=== PATIENT | female | born 1980 | race Asian ===

== ENCOUNTER → 2021-04-08 10:03 | Outpatient (CLI) | payer OTHER, SELFPAY ==
[2021-04-08 11:05] LABS: COVID19 -Nasal RAPID Negative (Negative)
== END ==
PROVIDERS: PCP Family Medicine; Visit Provider Obstetrics & Gynecology
DX: Z01.812 Encounter for preprocedural laboratory examination (principal); Z20.822 Contact with and (suspected) exposure to COVID-19
CPT/HCPCS: 87635

== ENCOUNTER 2021-04-09 13:09 | Day surgery (SDC) | payer OTHER, SELFPAY ==
[2021-04-03 14:53] VITALS: BMI 23.1
[2021-04-09] VITALS (7 sets, daily range): BP systolic 98–116; BP diastolic 42–75; PULSE 56–64; RESP 14–18; TEMP 36.3–37.1; O2SAT 97–100; BMI 22.4
--- NOTE | 2021-04-09 | PATH_ITS ---
[facility] Accession Number: [id number] . 01 Material submitted: . endometrium - ENDOMETRIAL CURETTINGS . 01 Clinical history: . PELVIC . 02 Diagnosis: Endometrial Curettings: Patchy glandular crowding. Background of dys-synchronous endometrium; negative for glandular hyperplasia, cytologic atypia, or malignancy. Some endometrial fragments demonstrate prominent vessels, suggestive of polyp, if clinical and imaging studies are concordant. MRV 04/12/2021 1030 Local . 02 Electronically signed: . Alda Leary MD, Pathologist NPI- [id number] . 01 Gross description: . ENDOMETRIAL CURETTINGS: Received in formalin are minute fragments of mucoid and hemorrhagic material measuring 3.0 x 3.2 x 0.6 cm in aggregate. Submitted in toto in 1 cassette. /MARISA 04/10/2021 0804 Local . 02 Pathologist provided ICD-10: N92.0, N83.209 . 02 CPT . 226569 Performed at: 01 [facility] [address], [place], [place] [id number] MD Jordon Vazquez MD Phone: [phone] Performed at: 02 [facility] [address] [place], [place] [id number] MD Aleida Michel MD Phone: [phone]
[2021-04-09] MEDS: LACTATED RINGERS 1,000 ML 100 ML IV (13:43)
--- NOTE | 2021-04-09 14:04 | PM.PREOP ---
Pre-operative Note COVID-19 COVID-19 status: Negative Result date/Date tested (Pos, Neg/Pending): 04/08/21 Interval Note History & Physical reviewed/Exam performed by Physician: Yes Changes to H&P: No
[2021-04-09] MEDS: ACETAMINOPHEN 325 MG TABLET 650 MG PO (14:09)
--- NOTE | 2021-04-09 14:50 | SUR.OPER ---
Lithotomy on padded OR bed, head on pillow, arms tucked with gel pads at sides. Legs secured in padded yellow fins stirrups.
[2021-04-09] MEDS: BUPIVACAINE 0.25% W/ EPI 30 ML VIAL INJ (15:06)
--- NOTE | 2021-04-09 15:49 | P.OP_ITS ---
Operative Date/Time/Diagnoses Date of procedure: 04/09/21 Time of procedure: 15:49 Pre-op diagnosis: Menorrhagia and left ovarian cyst on ultrasound suggestive endometrioma Post-op diagnosis: same Procedure & Clinicians Procedure: Laparoscopy with destruction of perineal endometriosis and left endometrioma, hysteroscopy D&C with resection of polyps Same procedure as scheduled: Yes Indications: Patient with menorrhagia and suggestion of polyps on ultrasound with probable endometriomas on the left ovary by ultrasound. Patient also has dysmenorrhea. Surgeon: Maria Luz Mathias Marble Supervisor: Kalin Michael Click Yes if Unassisted: No Anesthesia Type: General Operative Notes Findings: Enlarged uterus. Edematous appearing fallopian tubes. Endometriomas of the left ovary with significant adhesions of the ovary to the posterior uterine wall. Areas of endometriosis on the anterior bladder flap. Likely endometriosis that was cauterized on her right ovary. (Stage III endometriosis.) Normal-appearing appendix. Normal bowel surface. Normal liver edge. No internal hernias. Areas of thickened endometrium with likely polyps removed with scraping and the resecting loop. Closure Type: primary Specimen(s): other (Endometrial curettings) Estimated Blood Loss (mL): 10 Blood products transfused: none Procedure in detail: Patient was brought to the operating room where she underwent general anesthesia. She was placed in low [facility] stirrups and prepped and draped in usual sterile fashion. Pulsatile stockings were in place and functional. Warming was with blankets. A single-tooth tenaculum was placed on the anterior lip of the cervix and the cervix dilated to #6 Hegar dilator. The Ashly uterine manipulator was placed and balloon inflated with 3 mL of air. The area of the incisions were injected with half percent Marcaine with epinephrine. An incision was made in the umbilicus with a scalpel and the Verres needle placed in the abdomen. Confirmation of correct placement of the needle was performed by withdrawing on the syringe and then allowing fluid to fall freely through the needle. The abdomen was insufflated to 3 L of CO2. A 5 mm trocar was placed under direct visualization. 2 other 5 mm trochars were placed in the right and left lower quadrant under direct visualization after incising the skin. There did not appear to be any damage with placement of the trocars. The gyrus cautery was used to cauterize areas of endometriosis on the bladder flap, on the right ovary surface and the posterior uterine wall. With manipulation the left endometrioma areas were ruptured. The endometrium cyst saavedra were cauterized with the PK. Adequate hemostasis was noted. Copious irrigation was undertaken. The CO2 was allowed to escape from the abdomen. The trochars were removed. Skin was closed with 4-0 monocryl. Next the procedure was switched to vaginal. The hysteroscope was placed into the uterus with a sorbitol solution running and under constant suction. The resecting loop set at 80 W of cutting was used to resect the polypoid appearing areas of the endometrium. An endometrial curettage was performed. The endometrial curettage was sent to pathology. The patient went to recovery room in good condition counts of instruments and sponges were correct. The sorbitol solution I=O approximately 3000 mL. The patient went to recovery room in good condition. Complications: none Post-operative Condition: stable Disposition: same day surgery Plan for aftercare: Follow-up in 1 week for further discussion of treatment options
[2021-04-09] MEDS: fentaNYL 100 MCG/2 ML INJ IV (16:08)
[2021-04-09] MEDS: OXYCODONE IR 5 MG TABLET PO (16:11)
[2021-04-09] MEDS: BENZOCAINE/MENTHOL 1 LOZ PKT 1 EACH PO (16:33)
== END 2021-04-09 17:25 | disposition home or self-care (01) ==
PROVIDERS: PCP Family Medicine; Referring Provider Specialist; Visit Provider Specialist
PROC: (CPT 58662; principal; 2021-04-09 14:30)
PROC: 0UDB8ZZ Extraction of Endometrium, Via Natural or Artificial Opening Endoscopic (ICD-10-PCS; CPT 58558; 2021-04-09 14:30)
DX: N92.0 Excessive and frequent menstruation with regular cycle (principal); N94.6 Dysmenorrhea, unspecified; R93.89 Abnormal findings on diagnostic imaging of other specified body structures; K21.9 Gastro-esophageal reflux disease without esophagitis
CPT/HCPCS: 58662; 58558; 81025; J0330; J1100; J1885; J2250; J2405; J2704; J3010

== ENCOUNTER 2023-05-09 10:11 | Emergency (ER) | payer OTHER, SELFPAY ==
[2023-05-09] VITALS (17 sets, daily range): BP systolic 114–138; BP diastolic 60–80; PULSE 54–73; RESP 14; TEMP 36.3; O2SAT 96–100; BMI 21.2
--- NOTE | 2023-05-09 12:15 | DI.CT.S_ITS ---
PROCEDURE: CT ABDOMEN PELVIS W CON INDICATIONS: RLQ pain TECHNIQUE: After the administration of intravenous contrast, axial sections acquired from the lung bases to the pubic symphysis. Coronal and sagittal reformats were performed. For radiation dose reduction, the following was used: automated exposure control, adjustment of mA and/or kV according to patient size. COMPARISON: None. FINDINGS: Lower thorax: The lung bases are clear. Heart size normal. No hiatal hernia. Liver: Normal in size and attenuation. No contour deformity present. Biliary system: No calcified cholelithiasis or pericholecystic inflammation. No intra or extrahepatic bile duct dilatation. Pancreas: Unremarkable without mass or inflammation evident. Spleen: Normal in size and density. Adrenals: Normal morphology and density. Reproductive system: Large uterine fibroid measures 4.2 by 7.6 cm. Bilateral adnexal cystic structures measure up to 3.3 cm Urinary system: Normal renal size and attenuation. No renal calculi, hydronephrosis, or solid mass present. Urinary bladder unremarkable. Gastrointestinal system: The bowel is unremarkable without evidence of bowel obstruction or inflammation. The stomach appears unremarkable. Appendix: No findings to suggest acute appendicitis. Peritoneal spaces: No mesenteric or retroperitoneal adenopathy. No free air. No free fluid. Vasculature: The IVC, aorta and iliac vasculature are unremarkable. Abdominal wall: Abdominal wall intact without evidence of ventral or inguinal hernias. Musculoskeletal: Normal bone mineralization. No acute fractures. IMPRESSION: 1. Although appendix is not discretely visualized, no pericecal inflammatory change present suggest appendicitis. 2. Large uterine fibroid and bilateral adnexal cysts can be correlated with ultrasound Approved by: Fabian Valencia M.D. on 05/09/2023 at 14:12
[2023-05-09 12:54] LABS: Add Manual Diff / Slide Review NO; Basophils Absolute Auto 100 /uL (0-100); Eosinophils Absolute Auto 100 /uL (0-450); Eosinophils Percent Auto 1.6 % (2-4); Hematocrit 34.3 % (36-46); Hemoglobin 10.8 g/dL (12.0-16.0); Lymphocytes Absolute Auto 1300 /uL (1100-4500); Mean Corpuscular HGB Conc 31.4 % (30-36); Mean Corpuscular Hemoglobin 24.2 PG (26-34); Mean Corpuscular Volume 77.2 fL (80-100); Monocytes Absolute Auto 500 /uL (0-900); Monocytes Percent Auto 7.7 % (3-14); Neutrophils Absolute Auto 4100 /uL (1500-7000); Neutrophils Percent Auto 68.7 % (50-75); Platelet Count 417 X10^3/uL (150-400); Red Blood Cell Count 4.44 X10^6/uL (4.0-5.2); Red Cell Distribution Width 15.3 % (11.6-14.8)
[2023-05-09 13:06] LABS: Alanine Aminotransferase 14 IU/L (<35); Albumin 4.6 g/dL (3.5-5.0); Albumin Globulin Ratio 1.4 (1.0-2.8); Alkaline Phosphatase 73 U/L (38-126); Aspartate Aminotransferase 25 IU/L (14-36); BUN Creatinine Ratio 14.8 (6-22); Bilirubin Total 0.3 mg/dL (0.2-1.3); Blood Urea Nitrogen 9 mg/dL (7-17); Calcium 8.9 mg/dL (8.4-10.2); Carbon Dioxide 25 mmol/L (22-32); Chloride 105 mmol/L (98-107); Estimated Glomerular Filt Rate > 60 mL/min (>60); Globulin 3.3 g/dL (1.7-4.1); Glucose 92 mg/dL (70-100); HEMOLYSIS 21 (0-50); Lipase 136 U/L (23-300); Potassium 3.6 mmol/L (3.4-5.1); Sodium 138 mmol/L (137-145); Total Protein 7.9 g/dL (6.3-8.2)
[2023-05-09] MEDS: KETOROLAC 30 MG/ML VIAL 15 MG IV (13:49)
--- NOTE | 2023-05-09 15:33 | ED_ITS ---
HPI - Abdominal Pain General Chief Complaint: Abdominal Pain Stated Complaint: Rt Lower Abd Pain Time Seen by Provider: 05/09/23 14:06 Source: patient Mode of arrival: Ambulatory History of Present Illness HPI narrative: Patient is a 42-year-old female who presents today with abdominal pain. She is being followed by youth liaison officer for menorrhagia due to adenomyosis and being treated with tranexamic acid. She had a CT at the [facility] on February 04. She reports at vaginal bleeding has decreased significantly. No dizziness no lightheadednes s no shortness of breath. Today she reports with abdominal pain. She denies any vaginal bleeding no fever chills no nausea or vomiting. Related Data Home Medications Medication Instructions Recorded Confirmed naproxen 500 mg tablet 500 mg PO BID PRN Pain (Scale 03/21/21 05/09/23 Score 7-10) ferrous sulfate 325 mg (65 mg 325 mg PO DAILY 05/09/23 05/09/23 iron) tablet (FeroSul) tranexamic acid 650 mg tablet 1,300 mg PO TID PRN heavy period 05/09/23 05/09/23 Previous Rx's Medication Instructions Recorded hydrocodone 5 mg-acetaminophen 325 1 tab PO Q6H PRN pain #10 tabs 05/09/23 mg tablet Allergies Allergy/AdvReac Type Severity Reaction Status Date / Time amoxicillin Allergy Unknown hives Verified 05/09/23 10:34 Review of Systems Review of Systems ROS Unobtainable: All systems reviewed & are unremarkable except as noted in HPI and below Patient History Medical History (Updated 05/09/23 @ 17:59 by Loretta Freeman DO) Anemia (~1992) Chicken pox (~1984) Wears glasses Social History household members: spouse and children Smoking Status: Never smoker alcohol intake: never Smoking Status: Never smoker alcohol intake frequency: 0-2 drinks per day Substance Use Type: does not use Exam Initial Vital Signs Initial Vital Signs: Vital Signs Temperature 97.4 F L 05/09/23 10:27 Pulse Rate 60 05/09/23 10:27 Respiratory Rate 14 05/09/23 10:27 Blood Pressure 138/70 05/09/23 10:27 Pulse Oximetry 99 05/09/23 10:27 Oxygen Delivery Method Room Air 05/09/23 10:27 GENERAL: Alert well-appearing 42-year-old female and in no acute distress. HEENT: Head atraumatic,EOMI, pupils reactive, face symmetric, moist mucous membranes CARDIOVASCULAR: Regular rate and rhythm without murmurs, rubs or gallops. RESPIRATORY: Breath sounds equal bilaterally, no wheezes rales or rhonchi. ABDOMEN: Soft, mild tender right lower quadrant no guarding no rebound : No CVA tenderness EXTREMITIES: Normal range of motion, no clubbing or edema. Neurovascularly i ntact NEUROLOGICAL: Alert and oriented x4. SKIN: Warm, dry, no laceration, no petechiae, no rashes or lesions. Course Orders Ordered: ED Orders 05/09/23 12:15 CT abdomen pelvis w con Stat 05/09/23 12:43 Complete Blood Count AUTO DIFF Stat Comprehensive Metabolic Panel Stat Lipase Stat 05/09/23 15:52 US pelvic complete Stat Discontinued Medications Ketorolac Tromethamine (Ketorolac 30 Mg/Ml Vial) 15 mg IV NOW ONE Stop: 05/09/23 12:48 Last Admin: 05/09/23 13:49 Dose: 15 mg Documented By: PAZ Ondansetron HCl (Ondansetron 4 Mg Odt) 4 mg PO NOW PRN PRN Reason: Nausea And Vomiting Ondansetron HCl (Ondansetron 4 Mg/2 Ml Inj) 4 mg IV NOW PRN PRN Reason: Nausea And Vomiting Vital Signs Vital signs: Vital Signs - 8 hr 05/09/23 13:46 05/09/23 13:46 05/09/23 14:00 Pulse Rate 60 Blood Pressure 136/80 120/74 Pulse Oximetry 100 05/09/23 14:00 05/09/23 14:21 05/09/23 14:21 Pulse Rate 67 61 Blood Pressure 122/68 Pulse Oximetry 100 100 05/09/23 14:30 05/09/23 14:40 05/09/23 14:40 Pulse Rate 73 66 Blood Pressure 124/69 Pulse Oximetry 100 96 05/09/23 15:00 05/09/23 15:00 05/09/23 15:20 Pulse Rate 65 Blood Pressure 117/73 119/68 Pulse Oximetry 100 05/09/23 15:20 05/09/23 15:30 05/09/23 15:41 Pulse Rate 54 L 56 L Blood Pressure 125/60 Pulse Oximetry 100 100 05/09/23 15:41 05/09/23 16:00 05/09/23 16:00 Pulse Rate 66 68 Blood Pressure 119/72 Pulse Oximetry 100 100 05/09/23 16:20 05/09/23 16:20 05/09/23 17:02 Pulse Rate 64 Blood Pressure 118/69 114/66 Pulse Oximetry 100 05/09/23 17:02 05/09/23 17:20 05/09/23 17:20 Pulse Rate 65 62 Blood Pressure 119/75 Pulse Oximetry 100 100 05/09/23 17:30 05/09/23 17:40 05/09/23 17:40 Pulse Rate 60 65 Blood Pressure 131/74 Pulse Oximetry 100 100 05/09/23 18:00 05/09/23 18:00 Pulse Rate 66 Blood Pressure 131/60 Pulse Oximetry 100 MDM - Abdominal Pain Lab Data 05/09/23 12:43 05/09/23 12:43 Labs: Lab Results 05/09/23 05/09/23 Range/Units 12:43 12:43 WBC 6.0 (4.5-11.0) X10^3/uL RBC 4.44 (4.0-5.2) X10^6/uL Hgb 10.8 L (12.0-16.0) g/dL Hct 34.3 L (36-46) % MCV 77.2 L (80-100) fL MCH 24.2 L (26-34) PG MCHC 31.4 (30-36) % RDW 15.3 H (11.6-14.8) % Plt Count 417 H (150-400) X10^3/uL Neut % (Auto) 68.7 (50-75) % Lymph % (Auto) 21.0 L (25-40) % [place] % (Auto) 7.7 (3-14) % Eos % (Auto) 1.6 L (2-4) % Baso % (Auto) 1.0 (0-2) % Neut # (Auto) 4100 (1869-5227) /uL Lymph # (Auto) 1300 (7315-8982) /uL [place] # (Auto) 500 (0-900) /uL Eos # (Auto) 100 (0-450) /uL Baso # (Auto) 100 (0-100) /uL Sodium 138 (137-145) mmol/L Potassium 3.6 (3.4-5.1) mmol/L Chloride 105 (98-107) mmol/L Carbon Dioxide 25 (22-32) mmol/L BUN 9 (7-17) mg/dL Creatinine 0.61 (0.52-1.04) mg/dL Estimated GFR > 60 (>60) mL/min BUN/Creatinine Ratio 14.8 (6-22) Glucose 92 (70-100) mg/dL Calcium 8.9 (8.4-10.2) mg/dL Total Bilirubin 0.3 (0.2-1.3) mg/dL AST 25 (14-36) IU/L ALT 14 (<35) IU/L Alkaline Phosphatase 73 (38-126) U/L Total Protein 7.9 (6.3-8.2) g/dL Albumin 4.6 (3.5-5.0) g/dL Globulin 3.3 (1.7-4.1) g/dL Albumin/Globulin Ratio 1.4 (1.0-2.8) Lipase 136 (23-300) U/L Point of care testing: Point of Care Testing Test Results Negative Urine Dip Bedside Urine Glucose Negative Bedside Urine Bilirubin - Negative Bedside Urine Ketone - Negative Urine Specific [place] 1.020 Bedside Urine Occult Blood - Negative Bedside Urine pH 6.0 Bedside Urine Protein - Negative Bedside Urine Urobilinogen - Negative Bedside Urine Nitrite - Negative Bedside Urine Leukocytes - Negative Esterase Imaging Data CT scan - abdomen/pelvis: Radiologist's Impression: PROCEDURE:? CT ABDOMEN PELVIS W CON ? INDICATIONS:? RLQ pain ? TECHNIQUE:? After the administration of intravenous contrast, axial sections acquired from the lung bases to the pubic symphysis.? Coronal and sagittal reformats were performed.? For radiation dose reduction, the following was used:? automated exposure control, adjustment of mA and/or kV according to patient size.? ? COMPARISON:? None. ? FINDINGS: ? Lower thorax: The lung bases are clear.? Heart size normal.? No hiatal hernia. ? Liver:? Normal in size and attenuation. No contour deformity present. ? Biliary system:? No calcified cholelithiasis or pericholecystic inflammation.? No intra or extrahepatic bile duct dilatation. ? Pancreas:? Unremarkable without mass or inflammation evident. ? Spleen:? Normal in size and density. ? Adrenals:? Normal morphology and density. ? Reproductive system:? Large uterine fibroid measures 4.2 by 7.6 cm.? Bilateral adnexal cystic structures measure up to 3.3 cm ? Urinary system:? Normal renal size and attenuation. No renal calculi, hydronephrosis, or solid mass present.? Urinary bladder unremarkable. ? Gastrointestinal system:? The bowel is unremarkable without evidence of bowel obstruction or inflammation. The stomach appears unremarkable. ? Appendix:? No findings to suggest acute appendicitis. ? Peritoneal spaces:? No mesenteric or retroperitoneal adenopathy.? No free air.? No free fluid.? ? Vasculature:? The IVC, aorta and iliac vasculature are unremarkable. ? Abdominal wall:? Abdominal wall intact without evidence of ventral or inguinal hernias. ? Musculoskeletal:? Normal bone mineralization.? No acute fractures.? ? IMPRESSION: ? 1. Although appendix is not discretely visualized, no pericecal inflammatory change present suggest appendicitis. ? 2. Large uterine fibroid and bilateral adnexal cysts can be correlated with ultrasound ? ? Approved by: Fabian Valencia M.D. on 05/09/2023 at 14:12? US - COMMERCIAL LOAN ANALYST: Radiologist's Impression: PROCEDURE:? US PELVIC COMPLETE ? INDICATIONS:? PAIN; OVARIAN CYSTS ON CT ? TECHNIQUE:? Real-time scanning was performed of the pelvic organs, with image documentation.? Additional endovaginal scanning was necessary due to incomplete visualization of the adnexal and endometrial structures by transabdominal scanning.? ? COMPARISON:? None. ? FINDINGS:? ?? Uterus:? Uterus is anteverted and normal in size at 10.4 x 5.9 x 8.1 cm. The myometrium is heterogenous. ? The endometrium measures 10.6 mm combined thickness.? Midline anterior fibroid submucosal measures 6.5 x 4.1 x 6.4 cm ? Ovaries:? The right ovary measures 3.8 x 4.4 x 3.3 cm, with a calculated ovarian volume of 29.0 cc. The left ovary measures 3.3 x 3.7 x 2.8 cm, with a calculated ovarian volume of 17.9 cc. The ovaries have a normal sonographic appearance.? Right ovarian simple cyst measures 3.5 x 2.8 cm.? Left ovarian hemorrhagic cyst measures 3.0 x 3.2 cm. Bilateral normal appearing ovarian vascularity documented. ? Other:? No pathologic free abdominal or pelvic fluid. ? ? IMPRESSION:? ? 1. Large submucosal uterine fibroid, 6.5 cm. ? 2. Left ovarian 3.2 cm hemorrhagic cyst and right ovarian 3.5 cm simple cyst.? No evidence torsion ? ? Approved by: Fabian Valencia M.D. on 05/09/2023 at 16:34? [facility] Narrative Medical decision making narrative: Patient 42 year male who presenting today with abdominal pain. History of thyroid on vaginal bleeding. She reports vaginal bleeding has improved significantly she is anemic with a hemoglobin of 10 and hematocrit 34.3. She is hemodynamically stable. CT today does not show any evidence of appendicitis and appears relatively stable. Ultrasound does not show any evidence of ovarian torsion. Pain is well-controlled and completely resolved now in the ED. Discharge Plan Departure Patient Disposition: Home Clinical Impression: Fibroid, uterine Instructions: DI for Uterine Fibroids Activity Restrictions/Additional Instructions: *You have been diagnosed with uterine fibroids *What to do: At this time everything appears stable. Please continue to follow-up with Dr. Michael. *Continue to take medications as directed [place] 1 tablet every 6 hours if needed for severe pain-->[facility] *Follow up with your primary care provider in 2-3 days or call [phone] Michael on Thursday to schedule follow-up appointment *Return to ER if you should have increasing pain, vaginal bleeding more than 2 pads in 1 hour, dizziness lightheadedness or any new, worsening or concerning symptoms Prescriptions: New hydrocodone-acetaminophen 5-325 mg tablet 1 tab PO Q6H PRN (Reason: pain) Qty: 10 0RF No Action naproxen 500 mg tablet 500 mg PO BID PRN (Reason: Pain (Scale Score 7-10)) ferrous sulfate [FeroSul] 325 mg (65 mg iron) tablet 325 mg PO DAILY tranexamic acid 650 mg tablet 1,300 mg PO TID PRN (Reason: heavy period) Rx Instructions: Start medication with the start of each period Referrals: Chirag Azevedo MD [Primary Care Provider] - Stand Alone Forms: Patient Portal/API
--- NOTE | 2023-05-09 15:52 | DI.US.S_ITS ---
PROCEDURE: US PELVIC COMPLETE INDICATIONS: PAIN; OVARIAN CYSTS ON CT TECHNIQUE: Real-time scanning was performed of the pelvic organs, with image documentation. Additional endovaginal scanning was necessary due to incomplete visualization of the adnexal and endometrial structures by transabdominal scanning. COMPARISON: None. FINDINGS: Uterus: Uterus is anteverted and normal in size at 10.4 x 5.9 x 8.1 cm. The myometrium is heterogenous. The endometrium measures 10.6 mm combined thickness. Midline anterior fibroid submucosal measures 6.5 x 4.1 x 6.4 cm Ovaries: The right ovary measures 3.8 x 4.4 x 3.3 cm, with a calculated ovarian volume of 29.0 cc. The left ovary measures 3.3 x 3.7 x 2.8 cm, with a calculated ovarian volume of 17.9 cc. The ovaries have a normal sonographic appearance. Right ovarian simple cyst measures 3.5 x 2.8 cm. Left ovarian hemorrhagic cyst measures 3.0 x 3.2 cm. Bilateral normal appearing ovarian vascularity documented. Other: No pathologic free abdominal or pelvic fluid. IMPRESSION: 1. Large submucosal uterine fibroid, 6.5 cm. 2. Left ovarian 3.2 cm hemorrhagic cyst and right ovarian 3.5 cm simple cyst. No evidence torsion Approved by: Fabian Valencia M.D. on 05/09/2023 at 16:34
== END 2023-05-09 18:18 | disposition home or self-care (01) ==
PROVIDERS: Emergency Medicine; Emergency Provider Emergency Medicine; PCP Internal Medicine
DX: D25.0 Submucous leiomyoma of uterus (principal)
CPT/HCPCS: 36415; 74177; 76856; 80053; 81003; 81025; 83690; 85025; 93975; 96374; 99284; J1885; Q9967

== ENCOUNTER 2023-12-31 08:20 | Day surgery (SDC) | payer OTHER, SELFPAY ==
[2023-12-17 15:08] VITALS: BMI 21.8
[2023-12-31] VITALS (13 sets, daily range): BP systolic 97–136; BP diastolic 52–74; PULSE 80–94; RESP 12–18; TEMP 36.1–37; O2SAT 96–100; BMI 21.8; BMI 22.8
--- NOTE | 2023-12-31 | PATH_ITS ---
[facility] Accession Number: [id number] No. of containers..02 Tissue . 01 Material submitted: . PART A: uterus - UTERUS, BILATERAL FALLOPIAN TUBES, R OVARY PART B: ovary - ENDOMETRIUM, LEFT OVARY . 01 Diagnosis: A. UTERUS, BILATERAL FALLOPIAN TUBES, RIGHT OVARY, TOTAL LAPAROSCOPIC HYSTERECTOMY WITH BILATERAL SALPINGECTOMY AND RIGHT OOPHORECTOMY (WEIGHT 235 GRAMS, FRAGMENTED UTERUS): Proliferative endometrium; negative for glandular hyperplasia, cytologic atypia, or malignancy. Myometrium with patchy involvement by adenomyosis and with one benign leiomyoma (10 mm in greatest dimension). Left fallopian tube, complete cross-sections, with involvement by endometriosis; negative for epithelial atypia or malignancy. Right fallopian tube, complete cross-sections, with involvement by endometriosis; negative for epithelial atypia or malignancy. Right ovary with a hemorrhagic corpus luteum, with benign follicular cysts, and with involvement by endometriosis. . B. ENDOMETRIOMA LEFT OVARY: Portions of fibroconnective tissue with abundant hemosiderin laden macrophages; findings could be consistent with fragments of endometrioma, in the appropriate setting. No well-preserved ovarian tissue identified. [facility] 01/07/2024 1036 Local . 01 Comment: Part B. Dr. Leary called Dr. Michael's care team (Dr. Alec Gómez's nurse) on 01-07-24 at approximately 10:26 regarding the absence of definite ovarian tissue in part B (submitted as endometrioma left ovary). . 01 Electronically signed: . Alda Leary MD, Pathologist NPI- [id number] . 01 Gross description: . A. Received in formalin with two identifiers and uterus, bilateral fallopian tubes, R ovary, is a fragmented uterus (235 grams, 15.2 x 14.5 x 5.2 cm), presumed right fallopian tube (5.2 x 0.9 cm), presumed ragged right ovary (15 grams, 4.5 x 2.9 x 2.2 cm), and presumed left fallopian tube (3.7 x 0.6 cm), with no additional adnexa. The serosa is rodriguez and wrinkled with no evidence of adhesion identified. The presumed endometrium is velvety and averages 0.1 cm thick, with no lesions identified. The myometrium is rodriguez and trabecular with a well-circumscribed, white, whorled nodule measuring 1.0 cm in greatest dimension, and no hemorrhage or necrosis identified. No additional lesions are identified. . The left tube has rodriguez smooth serosa with a cystic structure measuring 0.4 cm in greatest dimension filled with clear serous fluid. Sectioning reveals an unremarkable stellate lumen. . The right fallopian tube has rodriguez, smooth serosa with no cysts identified, and sectioning reveals an unremarkable stellate lumen. The presumed ovary right ovary is diffusely ragged, is inked blue, and sectioning reveals ovarian parenchyma with multiple cystic structures measuring up to 0.9 cm in greatest dimension with contents ranging from hemorrhagic to serous. The ragged areas appear to be attached soft tissue with cautery artifact. . [employer] Judge sections are submitted as follows: A1: Endometrium A2: Serosa. A3: Nodule. A4: Left fallopian tube to include one-half of bisected fimbriae and cross sections. A5: Right fallopian tube to include one-half of bisected fimbriae and cross sections. A6: Right ovary. B. Received in formalin with two identifiers and endometrioma left ovary, is an irregular, brown, soft tissue fragment measuring 1.1 x 0.9 x 0.4 cm. One aspect consistent with margin is inked blue while the opposite aspect is inked yellow, and the specimen is serially sectioned and submitted entirely in B1. ([id number]) /MRV 01/07/2024 1036 Local . 01 Pathologist provided ICD-10: N80.9 . 01 CPT . 607430, [id number] Performed at: 01 [facility] [address] [place] [address] [address] [facility] [place], [place], [place] [id number] MD Jordon Vazquez MD Phone: [phone]
[2023-12-31] MEDS: LACTATED RINGERS 1,000 ML 42 ML IV ×2 (09:13→11:09)
--- NOTE | 2023-12-31 09:15 | PM.PREOP ---
Pre-operative Note COVID-19 COVID-19 status: Not tested Interval Note History & Physical reviewed/Exam performed by Physician: Yes Changes to H&P: No
[2023-12-31] MEDS: SCOPOLAMINE 1 PATCH TOP (09:16)
[2023-12-31] MEDS: ACETAMINOPHEN 325 MG TABLET 975 MG PO (09:17)
[2023-12-31] MEDS: CEFAZOLIN 2 GM/100 ML PREMIX 100 ML IV (09:39)
--- NOTE | 2023-12-31 10:06 | SUR.OPER ---
Lithotomy on padded OR bed. [place] Pad Positioner under torso. Head on pillow, arms padded and tucked at sides. Legs secured in padded yellow fins stirrups.
[2023-12-31] MEDS: BUPIVACAINE 0.5% (PF) 30 ML, EPINEPHrine 0.15 MG INJ (10:18)
--- NOTE | 2023-12-31 12:34 | PM.GYNOP.1 ---
Operative Date/Time/Diagnoses Date of procedure: 12/31/23 Time of procedure: 09:45 Pre-op diagnosis: Menometrorrhagia Adenomyosis Post-op diagnosis: other (Same as above; stage III pelvic endometriosis) Procedure & Clinicians Procedure: Procedures Operation Date: 12/31/23 09:45 Actual Procedure Side Surgeon p Laparoscopic Total Hysterectomy with bilateral salpingectomy Kalin Michael MD Indications: Yris is a 42 yo A2, LMP 11/05/2023 who presents today to discuss options for lessening her menstrual flow which has resulted in anemia for which she is taking ferrous sulfate daily. In March 2021, the patient underwent laparoscopy, hysteroscopy, and D&C with resection of an endometrial polyp and removal of an ovarian endometrioma. Following her surgery however the patient has not had a significant change in her menstrual flow which although only lasting 3 days, the 1st days extremely heavy resulting in overflows and accidents. She denies intermenstrual bleeding however. Her last Pap was 4 years ago and was normal as have been all of her other Paps previously. Patient would like to get again in therefore use of contraception in the treatment of her menorrhagia at this point isn't an option she wants to consider. Her most recent pelvic ultrasound performed at [facility] on 08/21/2022 showed the uterus to be anteverted measuring about 12 cm in length, 8 cm in width, and 6.5 cm in AP dimension. The uterine contour is somewhat globular in the anterior myometrium is asymmetrically thickened and heterogenous with scattered linear striations and thin shadows and possibly a few scattered tiny cysts. Also some portions of the endometrial/myometrial interface are obscured. In retrospect it is believe these findings were present on prior ultrasound from February 2021 but appear somewhat more obvious on the current scan and are consistent with adenomyosis. Endometrial canal echo were seen is homogeneous LEEP echogenic and of normal thickness for a patient who is still menstruating. Estimated maximal double wall thickness is about 9 mm in the midline. The right ovary is unremarkable but the left ovary is slightly enlarged measuring 5.1 x 4.4 x 1.8 cm with a cubic volume of approximately 21 cc. There is a 2.6 x 2.3 x 1.7 cm cyst with some minimal low-level internal echoes of the lower aspect of the left ovary. To previously noted homogeneous Olga hypoechoic probable endometriomas of the left ovary measuring about 3.5 and 1.6 cm average diameter respectively noted on study from February 2021 are not identified on this study. There is no adnexal masses noted and there is no focal pelvic fluid collection. After consideration of all options, the patient wishes to proceed with total laparoscopic hysterectomy and bilateral salpingectomy. She presents today for her scheduled surgery. Surgeon: Kalin Michael Line Patroller: Maria Luz Mathias Anesthesia Type: General Operative Notes Findings: The uterus is globular and diffusely enlarged to approximately 8-10 weeks size. There are 2 superficial endometrial implants in the anterior cul-de-sac. There is extensive scarring involving both adnexa with both ovaries adherent to the lateral aspect of the uterus, right side more so than the left. Fallopian tubes are also distorted by adnexal scarring. Endometriomas are present in both ovaries. Posterior cul-de-sac is involved with adhesions involving the posterior cervix to the distal sigmoid and proximal rectum rectum. The remainder of the abdomen appeared normal to laparoscopic inspection. Closure Type: primary Specimen(s): left tube, right tube & ovary, uterus and other (Endometrioma capsule, left ovary) Applied: catheter Estimated blood loss (mL): 200 Blood products transfused: none Procedure in detail: With the patient under satisfactory general anesthesia in the modified dorsal lithotomy position, perineum, vagina, abdomen were prepped and draped in the usual manner for total laparoscopic hysterectomy. Pre-surgical safety time-out was then taken in accordance with [facility] [place] protocols. A Mcgill catheter was inserted in the bladder. A bivalve speculum was inserted in the vagina and the anterior lip of the cervix grasped with a single-tooth tenaculum. A 1. PDS stitch was placed through the anterior lip of the cervix and threaded through the VCare uterine manipulator after is inserted following cervical dilation with the Hegar dilators. The umbilicus was infiltrated with 0.5% Marcaine with epinephrine a 1 cm vertical incision was made in the skin of the inferior edge of the umbilicus. A Veress needle was then used to insufflate the abdomen with carbon dioxide and once sufficiently insufflated, a 5 mm trocar and sleeve replaced into the abdominal cavity. Correct placement of trocar was confirmed by direct visualization abdominal viscera with the scope. A 2nd and 3rd 5 mm port placed in the left and right mid quadrants utilizing a similar technique. Using a 3 puncture technique, the patient's pelvis and abdomen were carefully inspected with the findings as noted above. The uterus was mobilized but mobility was limited due to adhesions. The left fallopian tube was grasped with an atraumatic grasper and using the power Seal device, it was from the ovary on the left and sequential pedicles taken so as to be able remove the left fallopian tube. Sharp and blunt dissection was then used to dissect free the adhesions involving the rectosigmoid from the posterior aspect of the uterus. Once the rectosigmoid was sufficiently mobilized, the dissection was carried down the lateral aspect of the uterus on the left staying as close as possible to the body of the uterus. Once the vesico cervical reflection was identified, bladder flap was initiated from the left side and vessels skeletonized. The adhesions to the posterior aspect of the cervix were so dense that it was felt prudent to change the surgical plan from TLH to laparoscopic supracervical hysterectomy. Accordingly the vessels on the lateral aspect of the cervix were coagulated divided power Seal and the level of the endocervical canal was skeletonized with careful attention to hemostasis. Attention was then turned to right side and attempts to separate the ovary from the posterior aspect of the uterus were unsuccessful due to the extent and density of the adhesions involved. An endometrioma within the ovary on the right was suctioned irrigated. The infundibulopelvic ligament was skeletonized on the right side, coagulated and divided with a power Seal device. Dissection on the right side was then carried out with a power Seal device as well as both sharp and blunt dissection so as to open the space on the superolateral aspect the sidewall careful avoidance of the ureter on that side as well as all in vessels. The dissection was carried down slowly to the level of the endocervical canal at which point the bladder flap was completed and the vessels taken with a power Seal device on the right side. Uterus blanched as expected and using a Hailee loop, the uterine corpus was amputated from the cervix the cervix was rendered hemostatic with monopolar cautery and the endocervical canal itself was then coagulated with the monopolar cautery as well. A 4 cm transverse incision in the line of her previous Pfannenstiel was made and a 12 mm laparoscopic trocar placed through the incision into the abdominal cavity. Using a specimen retrieval bag, the uterus was captured and brought up through the incision after placement an Marco retractor. The uterus was then morcellated and the aggregate specimen was submitted for pathologic evaluation. Fascia was then closed with 0 Vicryl in running stitch. The abdomen was then reinsufflated and the pelvis carefully inspected for any points of bleeding. Two small areas venous bleeding were noted and easily brought under control. Pelvis was irrigated thoroughly and carefully inspected for any additional areas of bleeding under low pressure and none were seen. Ureters were both visualized at pelvic brim and seen to be actively peristalsing on both sides. Once complete pelvic hemostasis was assured, a pneumoperitoneum was vented and the trocars removed. The incisions were all closed with 4-0 Monocryl in inverted interrupted stitches and appropriate dressings were applied. Patient was then awakened from anesthesia and transferred to the PACU for a period of observation and recovery having tolerated the procedure well. Complications: none Post-operative Condition: stable Disposition: PACU Plan for aftercare: Routine postop care with follow-up plans for 2 weeks postop.
[2023-12-31] MEDS: LACTATED RINGERS 1,000 ML 100 ML IV ×2 (13:23→18:35)
[2023-12-31] MEDS: OXYCODONE IR 5 MG TABLET PO (14:31)
[2023-12-31] MEDS: ONDANSETRON 4 MG/2 ML INJ IV (18:34)
[2023-12-31] MEDS: IBUPROFEN 600 MG TABLET PO (18:34)
[2023-12-31] MEDS: ACETAMINOPHEN 325 MG TABLET 650 MG PO (18:34)
[2023-12-31] MEDS: DOCUSATE 100 MG CAPSULE 200 MG PO (21:53)
[2024-01-01] VITALS (10 sets, daily range): BP systolic 101–140; BP diastolic 33–74; PULSE 63–81; RESP 16; TEMP 36.5–36.9; O2SAT 98–100
[2024-01-01] MEDS: LACTATED RINGERS 1,000 ML 100 ML IV ×2 (04:59→22:38)
[2024-01-01] MEDS: ACETAMINOPHEN 325 MG TABLET 650 MG PO ×4 (05:46→18:35)
[2024-01-01] MEDS: KETOROLAC 30 MG/ML VIAL IV ×2 (06:41)
[2024-01-01 06:59] LABS: Add Manual Diff / Slide Review NO; Basophils Absolute Auto 0 /uL (0-100); Basophils Percent Auto 0.4 % (0-2); Eosinophils Absolute Auto 0 /uL (0-450); Lymphocytes Absolute Auto 1000 /uL (1100-4500); Lymphocytes Percent Auto 12.9 % (25-40); Mean Corpuscular HGB Conc 27.5 % (30-36); Mean Corpuscular Hemoglobin 15.4 PG (26-34); Mean Corpuscular Volume 55.8 fL (80-100); Monocytes Absolute Auto 700 /uL (0-900); Monocytes Percent Auto 8.8 % (3-14); Neutrophils Absolute Auto 6000 /uL (1500-7000); Neutrophils Percent Auto 77.9 % (50-75); Platelet Count 341 X10^3/uL (150-400); Red Blood Cell Count 2.95 X10^6/uL (4.0-5.2); Red Cell Distribution Width 20.1 % (11.6-14.8); White Blood Cell Count 7.7 X10^3/uL (4.5-11.0)
[2024-01-01 07:02] LABS: Hemoglobin 4.5 g/dL (12.0-16.0)
[2024-01-01 07:03] LABS: Hematocrit 16.5 % (36-46)
[2024-01-01 07:32] LABS: Anisocytosis 2+; Microcytosis 2+
[2024-01-01 07:33] LABS: Ovalocytes 1+; Schistocytes 1+
[2024-01-01 07:35] LABS: Hypochromasia 2+
--- NOTE | 2024-01-01 07:52 | PC.NURSE ---
Critical H & H 4.5/ 16.5. Notified Dr. Michael and received order for 1000mg IV TXA, repeat H&H at 10:00, abdominal binder, d/c toredal. Patient asymptomatic and no bleeding noted. Endorsed to oncoming nurse.
[2024-01-01] MEDS: TRANEXAMIC ACID 1,000 MG in SODIUM CHLORIDE 0.9% 100 ML 200 MG IV (08:07)
--- NOTE | 2024-01-01 08:11 | P.PN_ITS ---
Subjective Subjective Date Patient Seen: 01/01/24 Time Patient Seen: 08:11 Interval history: Patient has done extremely well overnight with no nausea and vomiting, no vaginal bleeding, and her mckeon has been removed but she hasn't been up much yet. Exam Vital Signs (past 8 hours): - 01/01/24 05:58 Temperature 98.1 F Pulse Rate 69 Respiratory Rate 16 Blood Pressure 104/58 L Pulse Oximetry 99 Oxygen Flow Rate 0 Oxygen Delivery Method Room Air Oxygen Flow Rate 0 Const General: cooperative and comfortable Nutritional Appearance: average body habitus Orientation: alert and oriented x3 HENMT Head: normal to inspection, atraumatic and abrasion Ears: hearing grossly normal bilaterally Face and sinus: face symmetric Eyes General: appearance normal, both eyes and all related structures Conjunctivae: conjunctivae normal Sclera: sclerae normal EOM: EOM intact bilaterally Neck Neck: normal visual inspection Resp Effort & Inspection: normal respiratory effort and able to speak in complete sentences Auscultation: clear to auscultation bilaterally Cardio Rate: regular rate Rhythm: regular rhythm Heart Sounds: S1 normal, S2 normal and no murmurs GI Inspection: normal to inspection, non-distended and incision (Surgical dressings clean and dry) Palpation: soft, no hepatosplenomegaly and tender (Mild, diffuse postsurgical tenderness) Auscultation: hypoactive bowel sounds External Female Exam: other (No significant bleeding noted) Extrem General: no calf tenderness Psych Appearance: grossly normal Mental Status: mental status grossly normal Speech and Movement: speech and movement normal Mood: congruent mood Affect: normal affect Attitude: cooperative Thought Process: normal Thought Content: normal Judgment: judgment good Objective Labs 01/01/24 10:00 Labs: Laboratory Results - last 24 hr 01/01/24 06:00 WBC 7.7 RBC 2.95 L Hgb 4.5 L* Hct 16.5 L* MCV 55.8 L MCH 15.4 L MCHC 27.5 L RDW 20.1 H Plt Count 341 Neut % (Auto) 77.9 H Lymph % (Auto) 12.9 L [place] % (Auto) 8.8 Eos % (Auto) 0.0 L Baso % (Auto) 0.4 Neut # (Auto) 6000 Lymph # (Auto) 1000 L [place] # (Auto) 700 Eos # (Auto) 0 Baso # (Auto) 0 RBC Morphology See below Hypochromasia 2+ H Anisocytosis 2+ H Microcytosis 2+ H Ovalocytes 1+ H Schistocytes 1+ H PFSH Medical History (Updated 01/01/24 @ 08:14 by Kalin Michael MD) Wears glasses Chicken pox (~1984) Anemia (~1992) Surgical History (Updated 01/01/24 @ 08:14 by Kalin Michael MD) History of gynecologic surgery (04/09/21) Social History household members: spouse and children Smoking Status: Never smoker alcohol intake: current Assessment & Plan Assessment and plan (1) Chronic iron deficiency anemia: Status: Acute (2) Status post laparoscopic supracervical hysterectomy: Status: Acute Plan Will place abdominal binder TXA 1000 mg IV now Recheck H&H at 10:00 AM NPO until then Time Spent With Patient Time with patient: less than 30 minutes Quality VTE Deep Vein Thrombosis/Pulmonary Embolism Present on Admission: No
[2024-01-01 10:17] LABS: Hemoglobin 4.4 g/dL (12.0-16.0)
[2024-01-01] MEDS: OXYCODONE IR 5 MG TABLET PO (12:04)
--- NOTE | 2024-01-01 13:23 | CM.DANOTE ---
DCP Assessment Note Pt is a 43yo F, resident of [place], is s/p a total lap hysterectomy with butch salpingectomy. Pt lives in a house with her , son and dog. PCP: Chirag Azevedo Payor: Joss Hall Reviewed chart and team rounds for pt's medical status and initial discharge needs. SECURED ENTRANCE MONITOR met w/patient and spouse, Marco, at bedside; introduced self and role. Pt was found alert and oriented, sitting up in bed. Pt was eating lunch and was cooperative during assessment. Pt and spouse were able to confirm preference for discharging home and declined any discharge needs at this time. Plan: Pt anticipating to discharge home when medically cleared. Pt already notified provider that (transport) will accompany son to appointment in [place] at 1400 and will return this afternoon to provide transport at discharge. CM Team following closely for any pending discharge needs. LISA Blum Discharge Planning/Care Management CM Discharge Assessment Start: 01/01/24 13:21 Freq: Status: Active Protocol: Document 01/01/24 13:21 MW (Rec: 01/01/24 13:23 MW [id number]) Discharge Planning Assessment Assigned Field Checker BA Adorno DPOA/Assigned Designee Name Marco Mejia, Spouse Contact Information [phone] Advance Directives? No History Provided By Patient,Significant Other, Medical Record Expected Length of Stay 1 Has Patient been admitted in last 30 No days? Prior Living Arrangements House Household Members spouse,children Type of transporation used prior to Drives own vehicle admit Independent with ADL's Yes Is patient alert and oriented? Yes Comment No discharge needs identified at this time. Barriers to Discharge No Discharge Plan Home Referrals Initiated None needed Whiteboard Updated in Patient Room with Yes name and ext. # of Field Checker Please Provide Date Initial DC 01/01/24 Assessment Was Performed Next Review Type Continued Stay Review
[2024-01-01 14:12] LABS: Hematocrit 15.5 % (36-46); Hemoglobin 4.3 g/dL (12.0-16.0)
--- NOTE | 2024-01-01 17:05 | PM.PN.1 ---
Subjective Subjective Date Patient Seen: 01/01/24 Time Patient Seen: 15:20 Interval history: Yris continues to do well clinically in that her vitals are stable but her mean arterial pressures have slowly dropped through the course of today despite placement of a binder and IV TXA. She is able to get out of bed and ambulate to the bathroom comfortably but return of bowel function has thus far been sluggish. Unfortunately her hemoglobin and hematocrit continue to dropped slowly with her hematocrit having dropped a full percentage points over 8 hours today strongly suggesting continued oozing in the pelvis following her supracervical hysterectomy. Exam Vital Signs (past 8 hours): - 01/01/24 17:04 Temperature 97.7 F Pulse Rate 68 Respiratory Rate 16 Blood Pressure 106/33 L Pulse Oximetry 98 Oxygen Delivery Method Room Air Oxygen Flow Rate 0 Const General: cooperative and comfortable Nutritional Appearance: average body habitus Orientation: alert and oriented x3 HENMT Head: normal to inspection, atraumatic and abrasion Ears: hearing grossly normal bilaterally Face and sinus: face symmetric Eyes General: appearance normal, both eyes and all related structures Conjunctivae: conjunctivae normal Sclera: sclerae normal EOM: EOM intact bilaterally Neck Neck: normal visual inspection Resp Effort & Inspection: normal respiratory effort and able to speak in complete sentences Auscultation: clear to auscultation bilaterally Cardio Rate: regular rate Rhythm: regular rhythm Heart Sounds: S1 normal, S2 normal and no murmurs GI Inspection: normal to inspection, distended (Very mild) and incision (Surgical dressings clean and dry) Palpation: soft, no hepatosplenomegaly and tender (Moderate, diffuse postsurgical tenderness) Auscultation: hypoactive bowel sounds External Female Exam: other (No significant bleeding noted) Extrem General: no calf tenderness Psych Appearance: grossly normal Mental Status: mental status grossly normal Speech and Movement: speech and movement normal Mood: congruent mood Affect: normal affect Attitude: cooperative Thought Process: normal Thought Content: normal Judgment: judgment good Objective Labs 01/01/24 13:53 Labs: Laboratory Results - last 24 hr 01/01/24 01/01/24 01/01/24 06:00 10:00 13:53 WBC 7.7 RBC 2.95 L Hgb 4.5 L* 4.4 L* 4.3 L* Hct 16.5 L* 16.0 L* 15.5 L* MCV 55.8 L MCH 15.4 L MCHC 27.5 L RDW 20.1 H Plt Count 341 Neut % (Auto) 77.9 H Lymph % (Auto) 12.9 L [place] % (Auto) 8.8 Eos % (Auto) 0.0 L Baso % (Auto) 0.4 Neut # (Auto) 6000 Lymph # (Auto) 1000 L [place] # (Auto) 700 Eos # (Auto) 0 Baso # (Auto) 0 RBC Morphology See below Hypochromasia 2+ H Anisocytosis 2+ H Microcytosis 2+ H Ovalocytes 1+ H Schistocytes 1+ H Blood Type Antibody Screen Crossmatch 01/01/24 16:02 WBC RBC Hgb Hct MCV MCH MCHC RDW Plt Count Neut % (Auto) Lymph % (Auto) [place] % (Auto) Eos % (Auto) Baso % (Auto) Neut # (Auto) Lymph # (Auto) [place] # (Auto) Eos # (Auto) Baso # (Auto) RBC Morphology Hypochromasia Anisocytosis Microcytosis Ovalocytes Schistocytes Blood Type O Positive Antibody Screen Negative Crossmatch See Detail [facility] Medical History (Updated 01/01/24 @ 17:19 by Kalin Michael MD) Wears glasses Chicken pox (~1984) Anemia (~1992) Surgical History (Updated 01/01/24 @ 08:14 by Kalin Michael MD) History of gynecologic surgery (04/09/21) Social History household members: spouse and children Smoking Status: Never smoker alcohol intake: current Assessment & Plan Assessment and plan (1) Status post laparoscopic supracervical hysterectomy: Status: Acute (2) Chronic iron deficiency anemia: Status: Acute (3) Anemia following surgery: Status: Acute Plan Cancel anticipated discharge Transfuse 2 units packed red blood cells and reassess hemodynamics status NPO after midnight; If post surgical stabilization of H&H can not be achieved by conservative measures, laparoscopic evacuation of presumed pelvic hematoma and surgical control of any and all postop bleeding sites found would be appropriate. The patient and her are both aware of what is happening as well as the rationale for ongoing decision-making and possible need for surgical exploration. Time Spent With Patient Time with patient: less than 30 minutes Quality VTE Deep Vein Thrombosis/Pulmonary Embolism Present on Admission: No
[2024-01-02 00:43] LABS: Hematocrit 25.3 % (36-46); Hemoglobin 7.9 g/dL (12.0-16.0)
[2024-01-02] MEDS: HYDROMORPHONE 0.5 MG INJ IV (03:55)
[2024-01-02 04:00] VITALS: BP 153/81; PULSE 81; RESP 20; O2SAT 97
[2024-01-02 04:01] LABS: Hematocrit 26.1 % (36-46)
[2024-01-02 04:07] VITALS: BP 147/82; PULSE 78; RESP 20; TEMP 36.6; O2SAT 96
--- NOTE | 2024-01-02 05:27 | PC.NURSE ---
Patient has been resting in bed most of the shift. Up independently in room w/spouse help d/t IV pole. Patient tolerated 2 units PRBC. No active bleeding noted. Has abd binder on, c/o difficulty breathing when on but better when head isn't elevated up to high. Patient became npo after midnight d/t possible surgery in am. Patient wanted something for pain, only option was IVP dilaudid. Dilaudid given slowly and with in seconds patient started c/o sob and heart pounding. Fluids and dilaudid stopped and vitals taken immediately. BP 147/82, HR 78, RR 20, O2 sat 97% RA. No redness or rash noted. Patient started feeling better shortly after. All lines removed, new iv fluid line placed and new iv placed d/t possible still having dilaudid in the tubing. New reaction placed in allergy/adv in patients chart. Patient has been A&O, calm and cooperative.
[2024-01-02 07:41] LABS: Hematocrit 28.3 % (36-46); Hemoglobin 8.7 g/dL (12.0-16.0)
[2024-01-02] MEDS: DOCUSATE 100 MG CAPSULE 200 MG PO (08:53)
--- NOTE | 2024-01-02 09:52 | P.DS_ITS ---
History of Present Illness History of Present Illness Date Patient Seen: 01/02/24 Time Patient Seen: 09:53 Chief complaint: Menorrhagia, Adenomyosis Narrative: Yris is a 42 yo A2, LMP 11/05/2023 who presents today to discuss options for lessening her menstrual flow which has resulted in anemia for which she is taking ferrous sulfate daily. In March 2021, the patient underwent laparoscopy, hysteroscopy, and D&C with resection of an endometrial polyp and removal of an ovarian endometrioma. Following her surgery however the patient has not had a significant change in her menstrual flow which although only lasting 3 days, the 1st days extremely heavy resulting in overflows and accidents. She denies intermenstrual bleeding however. Her last Pap was 4 years ago and was normal as have been all of her other Paps previously. Patient would like to get again in therefore use of contraception in the treatment of her menorrhagia at this point isn't an option she wants to consider. Her most recent pelvic ultrasound performed at [facility] on 08/21/2022 showed the uterus to be anteverted measuring about 12 cm in length, 8 cm in width, and 6.5 cm in AP dimension. The uterine contour is somewhat globular in the anterior myometrium is asymmetrically thickened and heterogenous with scattered linear striations and thin shadows and possibly a few scattered tiny cysts. Also some portions of the endometrial/myometrial interface are obscured. In retrospect it is believe these findings were present on prior ultrasound from February 2021 but appear somewhat more obvious on the current scan and are consistent with adenomyosis. Endometrial canal echo were seen is homogeneous LEEP echogenic and of normal thickness for a patient who is still menstruating. Estimated maximal double wall thickness is about 9 mm in the midline. The right ovary is unremarkable but the left ovary is slightly enlarged measuring 5.1 x 4.4 x 1.8 cm with a cubic volume of approximately 21 cc. There is a 2.6 x 2.3 x 1.7 cm cyst with some minimal low-level internal echoes of the lower aspect of the left ovary. To previously noted homogeneous Olga hypoechoic probable endometriomas of the left ovary measuring about 3.5 and 1.6 cm average diameter respectively noted on study from February 2021 are not identified on this study. There is no adnexal masses noted and there is no focal pelvic fluid collection. After consideration of all options, the patient wishes to proceed with total laparoscopic hysterectomy and bilateral salpingectomy. She presents for her scheduled surgery. Discharge Providers Provider Date of admission: 12/31/2023 Discharge Date: 01/02/24 Primary care physician: Chirag Azevedo MD Discharge provider: Kalin Michael MD Summary Hospital Course Discharge Diagnosis: Menometrorrhagia Postoperative anemia due to blood loss Adenomyosis Pelvic endometriosis Right ovarian endometrioma Status post laparoscopic supracervical hysterectomy with right salpingo- oophorectomy and left salpingectomy Hospital Course: On 12/31/2023, the patient was admitted for hysterectomy. Details of the procedure well summarized on my operative note of that date. The original surgical plan was to perform total laparoscopic hysterectomy with bilateral salpingectomy but due to anatomy and scarring, laparoscopic supracervical hysterectomy was instead performed and removal of the right adnexa was necessary due to adhesions and endometrioma of the right ovary. The left ovary had a small endometrioma as well but that was easily removed and the left ovary remained in-situ. Estimated blood loss at the time of surgery was 200 cc but 1st morning hemoglobin and hematocrit were 4.3 and 15.5. Despite the fact the patient was largely asymptomatic, the decision was made to transfuse the patient with 2 units of packed red blood cells with a post transfusion hemoglobin and hematocrit of 8.7 and 28.3. The patient experienced prompt return of bowel and bladder function, she is ambulating independently, tolerating regular diet, and her pain is well controlled with oral pain medications. Patient will be discharged in the 2nd postoperative day to home in an afebrile normotensive condition after counseling regarding precautionary symptoms, limitations activity, medications, and plans for follow-up which will be in 2 weeks. Medications will include oxycodone 5 mg p.o. q.6 hours as needed pain dispense 20 with no refills and Cipro 500 mg p.o. b.i.d. x5 days for UTI prophylaxis. In addition the patient will take [id number] iron along with vitamin-C twice daily for the next 30 days. Status at Discharge Cognitive/behavioral status at discharge: oriented Functional status at discharge: independent ambulation Overall status at discharge: patient is progressing back to baseline Time Spent with Patient Time spent: Less than 30 minutes Exam Vital Signs (past 8 hours): - 01/02/24 04:00 01/02/24 04:07 Temperature 97.9 F Pulse Rate 81 78 Respiratory Rate 20 20 Blood Pressure 153/81 H 147/82 H Pulse Oximetry 97 96 Oxygen Flow Rate 0 0 Oxygen Delivery Method Room Air Oxygen Flow Rate 0 Const General: cooperative and comfortable Nutritional Appearance: average body habitus Orientation: alert and oriented x3 HENMT Head: normal to inspection, atraumatic and abrasion Ears: hearing grossly normal bilaterally Face and sinus: face symmetric Eyes General: appearance normal, both eyes and all related structures Conjunctivae: conjunctivae normal Sclera: sclerae normal EOM: EOM intact bilaterally Neck Neck: normal visual inspection Resp Effort & Inspection: normal respiratory effort and able to speak in complete sentences Auscultation: clear to auscultation bilaterally Cardio Rate: regular rate Rhythm: regular rhythm Heart Sounds: S1 normal, S2 normal and no murmurs GI Inspection: normal to inspection and incision (Surgical dressings clean and dry) Palpation: soft, no hepatosplenomegaly and tender (Mild, diffuse postsurgical tenderness) Auscultation: normal bowel sounds External Female Exam: other (No significant bleeding noted) Extrem General: no calf tenderness Psych Appearance: grossly normal Mental Status: mental status grossly normal Speech and Movement: speech and movement normal Mood: congruent mood Affect: normal affect Attitude: cooperative Thought Process: normal Thought Content: normal Judgment: judgment good Objective Labs 01/02/24 07:30 Labs: Laboratory Results - last 24 hr 01/01/24 01/01/24 01/01/24 10:00 13:53 16:02 Hgb 4.4 L* 4.3 L* Hct 16.0 L* 15.5 L* Blood Type O Positive Antibody Screen Negative Crossmatch See Detail 01/02/24 01/02/24 01/02/24 00:36 03:30 07:30 Hgb 7.9 L 8.0 L 8.7 L Hct 25.3 L 26.1 L 28.3 L Blood Type Antibody Screen Crossmatch [facility] Medical History (Updated 05/05/24 @ 13:05 by Kalin Michael MD) Wears glasses Chicken pox (~1984) Anemia (~1992) Surgical History (Updated 01/01/24 @ 08:14 by Kalin Michael MD) History of gynecologic surgery (04/09/21) Social History household members: spouse and children Smoking Status: Never smoker alcohol intake: current Discharge Assessment & Plan Assessment and Plan Assessment: Menometrorrhagia Adenomyosis Pelvic endometriosis Right ovarian endometrioma Postoperative anemia due to blood loss Status post laparoscopic supracervical hysterectomy with right salpingo- oophorectomy and left salpingectomy Plan of Treatment: Routine postoperative care with plans for follow-up in 2 weeks at which time will obtain a follow-up hemoglobin and hematocrit to assure stability. Discharge Plan Discharge Plan Patient Disposition: Home Provider Discharge Comment: Please review the written instructions you received when you were discharged from the hospital. I have placed an order for a follow-up hemoglobin and hematocrit to be performed at the time of your postop visit to be certain your blood counts remain stable or are rising as expected. Your follow-up appointment is scheduled for 2 weeks after your surgery and I look forward to seeing you then. If however in the meanwhile you have any questions, concerns, or problems, please contact me either through the office phone at [phone], or via the patient portal. I have also provided Marco with my cell phone number if you/he need to reach me for any reason. Discharge orders & Medications Discharge Orders: Discharge (Order); Ordered 01/02/24 Ordered By: Kalin Michael Prescriptions: Discontinued naproxen 500 mg tablet 500 mg PO BID PRN (Reason: Pain (Scale Score 7-10)) No Action fluconazole 150 mg tablet 150 mg PO Q3D Qty: 2 2RF Rx Instructions: Repeat second dose 72 hrs after first dose Follow up/Referrals: Chirag Azevedo MD [Primary Care Provider] - Kalin Michael MD [Physician] - Diet/Activity/Treatments Diet: Diet as Tolerated Activity: As tolerated Other treatments: [id number] Tylenol may be used as needed for additional pain relief. Akey-ocz-chlraay stool softeners and/or MiraLax may be used as needed for constipation. You will need to take an iron supplement tablet along with a tablet of vitamin C daily for the next 60 days. Skin/Wound/Dressing Care Report to your healthcare provider any signs of infection, such as:: chills, fever, increased pain, unusual drainage and unusual redness Dressing: Dressings should be removed on the morning of 01/03/2024. Visit Report/Discharge Packet Instructions: DI for Hysterectomy, DI for Laparoscopy, DI for Prescription Opioid Use Stand Alone Forms: Surgery Discharge Discharge Data Primary Care Provider: Chirag Azevedo Attending Provider: Kalin Michael VTE Deep Vein Thrombosis/Pulmonary Embolism Present on Admission: No
[2024-01-02] MEDS: ACETAMINOPHEN 325 MG TABLET 650 MG PO (11:10)
--- NOTE | 2024-01-02 13:17 | PC.NURSE ---
Pt A&Ox4, VSS. Reviewed patient discharge information with pt, pt able to teach back independently. IV removed, pt tolerated well. Belongings gathered. Pt taken downstairs in wheelchair by WILBERT Jarrett and discharged home with ride from .
== END 2024-01-02 12:55 | disposition home or self-care (01) ==
LOC: OR 08:21 → AC 08:22
PROVIDERS: PCP Internal Medicine; Referring Provider Obstetrics & Gynecology; Visit Provider Obstetrics & Gynecology
PROC: 0UT94ZZ Resection of Uterus, Percutaneous Endoscopic Approach (ICD-10-PCS; CPT 58571; principal; 2023-12-31 09:45)
DX: D25.9 Leiomyoma of uterus, unspecified (principal); N80.03 Adenomyosis of the uterus; D64.9 Anemia, unspecified; N73.6 Female pelvic peritoneal adhesions (postinfective); N80.319 Endometriosis of the anterior cul-de-sac, unspecified depth; N80.103 Endometriosis of bilateral ovaries, unspecified depth; N80.203 Endometriosis of bilateral fallopian tubes, unspecified depth; N83.11 Corpus luteum cyst of right ovary
CPT/HCPCS: 58571; 36415; 36430; 85014; 85018; 85025; 86850; 86900; 86901; P9016; J0171; J0690; J1100; J1170; J1885; J2250; J2405; J2704; J3010

== ENCOUNTER → 2024-02-11 12:35 | Outpatient (CLI) | payer OTHER, SELFPAY ==
[2023-12-31 13:15] VITALS: BMI 22.8
[2024-02-11 14:56] LABS: Basophils Absolute Auto 0 /uL (0-100); Basophils Percent Auto 0.8 % (0-2); Eosinophils Absolute Auto 100 /uL (0-450); Eosinophils Percent Auto 2.5 % (2-4); Hematocrit 35.6 % (36-46); Hemoglobin 11.3 g/dL (12.0-16.0); Lymphocytes Absolute Auto 1000 /uL (1100-4500); Mean Corpuscular HGB Conc 31.9 % (30-36); Mean Corpuscular Volume 75.3 fL (80-100); Monocytes Absolute Auto 400 /uL (0-900); Monocytes Percent Auto 6.6 % (3-14); Neutrophils Absolute Auto 4100 /uL (1500-7000); Neutrophils Percent Auto 72.1 % (50-75); Platelet Count 367 X10^3/uL (150-400); Red Blood Cell Count 4.73 X10^6/uL (4.0-5.2); Red Cell Distribution Width 29.5 % (11.6-14.8); White Blood Cell Count 5.6 X10^3/uL (4.5-11.0)
[2024-02-11 15:42] LABS: Add Manual Diff / Slide Review SLIDE REVIEW; Hypochromasia 1+; Microcytosis 2+
[2024-02-11 15:43] LABS: Anisocytosis 3+
== END ==
PROVIDERS: PCP Internal Medicine; Referring Provider Obstetrics & Gynecology; Visit Provider Obstetrics & Gynecology
DX: D64.9 Anemia, unspecified (principal)
CPT/HCPCS: 36415; 85025

== ENCOUNTER → 2024-04-15 14:25 | Outpatient (CLI) | payer OTHER, SELFPAY ==
[2023-12-31 13:15] VITALS: BMI 22.8
--- NOTE | 2024-04-15 | DI.MG.S_ITS ---
BILATERAL DIGITAL SCREENING MAMMOGRAM 3D/2D WITH CAD: 04/15/2024 CLINICAL: Baseline exam. Routine screening. No prior exams were available for comparison. Both breasts are extremely dense, which lowers the sensitivity of mammography (category d />75% glandular tissue). Current study was also evaluated with a Computer Aided Detection (CAD) system. No significant masses, calcifications, or other findings are seen in either breast. IMPRESSION: NEGATIVE There is no mammographic evidence of malignancy. A 1 year screening mammogram is recommended. Based on the Tyrer Cuzick model (a risk assessment model) the patient's lifetime risk is 13.6% and her 10 year risk is 2.5%. According to the ACR, ACS, and NCCN guidelines, an annual breast MRI exam along with mammogram is recommended if the patient's lifetime risk is 20% or greater. This exam was interpreted at Station ID: [id number]. NOTE: For mammograms, a report in lay terms will be sent to the patient. Approximately 15% of breast malignancies will not be visualized mammographically. In the management of a palpable breast mass, a negative mammogram must not discourage biopsy of a clinically suspicious lesion. Electronically Signed By: Carmelo hart/ronda:04/15/2024 14:58:16 letter sent: Normal Exam ACR BI-RADS Category 1: Negative [id number]
== END ==
PROVIDERS: PCP Internal Medicine; Referring Provider Internal Medicine; Visit Provider Internal Medicine
DX: Z12.31 Encounter for screening mammogram for malignant neoplasm of breast (principal); R92.343 Mammographic extreme density, bilateral breasts
CPT/HCPCS: 77063; 77067